=== PATIENT | female | born 1975 | race Caucasian/White ===

== ENCOUNTER 2020-05-25 08:18 | Outpatient (CLI) | payer BC, SELFPAY ==
--- NOTE | ~2020-05-25 | MM_ITS ---
EXAMINATION: MM screening [facility] w harjit HISTORY: Screening TECHNIQUE: Craniocaudal and mediolateral oblique 3-D tomosynthesis images were obtained and synthetic 2-D images were generated. CAD analysis was submitted and interpreted. COMPARISON: Comparison to multiple prior studies sequentially, with oldest reviewed study dated 10/02. BREAST PARENCHYMAL COMPOSITION: There are scattered areas of fibroglandular density. FINDINGS: There is focal subareolar asymmetry in the left breast on CC view. The right breast is stab le without evidence for malignancy. IMPRESSION: 1. Focal asymmetry of the left breast on CC view only. 2. Additional mammographic views and possible breast ultrasound are recommended. BI-RADS Category 0: Incomplete: Needs additional imaging evaluation. Reviewed, dictated and finalized at location A. E ENGINEER IMPRESSION: 1. Focal asymmetry of the left breast on CC view only. 2. Additional mammographic views and possible breast ultrasound are recommended . BI-RADS Category 0: Incomplete: Needs additional imaging evaluation.
== END 2020-05-25 08:19 | disposition home or self-care (01) ==
LOC: ANHIMG 08:22
PROVIDERS: PCP Obstetrics & Gynecology; Visit Provider Obstetrics & Gynecology
DX: Z12.31 Encounter for screening mammogram for malignant neoplasm of breast (principal); R92.8 Other abnormal and inconclusive findings on diagnostic imaging of breast
CPT/HCPCS: 77063; 77067

== ENCOUNTER 2020-06-23 11:51 | Outpatient (CLI) | payer BC, SELFPAY ==
--- NOTE | ~2020-06-23 | MM_ITS ---
EXAMINATION: MM diagnostic mammo unilat LT HISTORY: Focal asymmetry of left breast only on CC screening view of 05/25/2020 TECHNIQUE: Additional ML and coned compression CC 3-D tomosynthesis images of the left breast were pe rformed and synthetic 2-D images were generated. Rolled medial craniocaudal and rolled lateral cranio caudal views of left breast. CAD analysis was submitted and interpreted. COMPARISON: 05/25/2020, 05/08/2019, 12/26/2017, 10/02/2016 bilateral digital screening mammogram examinat ions FINDINGS: No reproducible mass is detected on these supplemental views. IMPRESSION: 1. No mammographic evidence of malignancy 2. Routine annual mammographic screening is recommended BI-RADS Category 1: Negative Reviewed, dictated and finalized at location A. CONSTRUCTION TEACHER
== END 2020-06-23 11:52 | disposition home or self-care (01) ==
LOC: ANHIMG 11:52
PROVIDERS: PCP Obstetrics & Gynecology; Visit Provider Obstetrics & Gynecology
DX: R92.8 Other abnormal and inconclusive findings on diagnostic imaging of breast (principal)
CPT/HCPCS: 77065

== ENCOUNTER 2021-09-01 14:43 | Outpatient (CLI) | payer OTHER, SELFPAY ==
--- NOTE | ~2021-09-01 | MM_ITS ---
EXAMINATION: MM screening [facility] BI w harjit HISTORY: Screening mammogram TECHNIQUE: Craniocaudal and mediolateral oblique 3-D tomosynthesis images were obtained and synthetic 2-D images were generated. CAD analysis was submitted and interpreted. COMPARISON: 06/23/2020, 05/25/2020, 05/08/2019 BREAST PARENCHYMAL COMPOSITION: The breasts are almost entirely fatty. FINDINGS: There is no evidence of suspicious mass, calcification, or architectural distortion to sugg est malignancy in either breast. There has been no suspicious interval change. IMPRESSION: 1. No mammographic evidence of malignancy. 2. Recommend routine screening mammography in one year. BI-RADS Category 1: Negative Reviewed, dictated and finalized at location A. ROAD SURVEYOR
== END 2021-09-01 14:44 | disposition home or self-care (01) ==
LOC: ANHIMG 14:46
PROVIDERS: PCP Obstetrics & Gynecology; Visit Provider Obstetrics & Gynecology
DX: Z12.31 Encounter for screening mammogram for malignant neoplasm of breast (principal)
CPT/HCPCS: 77063; 77067

== ENCOUNTER 2022-11-01 15:48 | Outpatient (CLI) | payer OTHER, SELFPAY ==
--- NOTE | ~2022-11-01 | MM_ITS ---
EXAMINATION: MM screening [facility] BI w harjit HISTORY: Screening mammogram TECHNIQUE: Craniocaudal and mediolateral oblique 3-D tomosynthesis images were obtained and synthetic 2-D images were generated. CAD analysis was submitted and interpreted. COMPARISON: No prior mammogram is available for comparison at this institution. BREAST PARENCHYMAL COMPOSITION: The breasts are almost entirely fatty. FINDINGS: There is no evidence of suspicious mass, calcification, or architectural distortion to sugg est malignancy in either breast. There has been no suspicious interval change. IMPRESSION: 1. No mammographic evidence of malignancy. 2. Recommend routine screening mammography in one year. BI-RADS Category 1: Negative Reviewed, dictated and finalized at location A.
== END 2022-11-01 15:49 | disposition home or self-care (01) ==
PROVIDERS: PCP Obstetrics & Gynecology; Visit Provider Obstetrics & Gynecology
DX: Z12.31 Encounter for screening mammogram for malignant neoplasm of breast (principal)
CPT/HCPCS: 77063; 77067

== ENCOUNTER 2022-11-11 17:44 | Emergency (ER) | payer OTHER, SELFPAY ==
[2022-11-11 18:10] VITALS: BP 148/83; PULSE 67; RESP 12; TEMP 37.3; O2SAT 100
--- NOTE | 2022-11-11 18:30 | ED.URI ---
HPI - URI/Sore Throat General Chief Complaint: Upper Respiratory Infection Stated Complaint: uri Time Seen by Provider: 11/11/22 18:30 Source: patient Mode of arrival: ambulatory Limitations: no limitations History of Present Illness HPI Narrative: 47-year-old female presents with complaint of sinus congestion, pressure to right side of face, postnasal drainage, nasal congestion for the past 4 days. Afebrile. No cough. No chest pain or shortness of breath. Denies nausea vomiting diarrhea. Is taking an [id number] cold and flu Medication to treat her symptoms. All systems reviewed and negative except as noted above. Related Data Home Medications Medication Instructions Recorded Confirmed norgestrel 0.3 mg-ethinyl 1 tablet PO DAILY 11/11/22 11/11/22 estradiol 30 mcg tablet (Elinest) Allergies Allergy/AdvReac Type Severity Reaction Status Date / Time Sulfa (Sulfonamide Allergy Severe HIVES Verified 11/11/22 17:57 Antibiotics) Review of Systems Review of Systems: CONSTITUTIONAL: Denies fever, chills, or sweats. EYES: Denies visual changes, redness, or discharge. ENT: Reports rhinorrhea, congestion, right ear pain. Denies sore throat CARDIOVASCULAR: Denies chest pain, palpitations, or edema. RESPIRATORY: Denies cough or dyspnea. GASTROINTESTINAL: Denies abdominal pain, nausea, vomiting, or diarrhea. GENITOURINARY: Denies dysuria or hematuria. SKIN: Denies rash or itching. MUSCULOSKELETAL: Denies back pain, joint pain, or myalgia. NEUROLOGIC: Denies headache, numbness, or weakness. PSYCHIATRIC: Denies anxiety or depression. All other systems reviewed are negative, except as documented in HPI. PMFSH Comments At time of signature, agree with nursing past medical, surgical, social and family history. There is no relevant family history pertinent to the presenting complaint. Exam Narrative: GENERAL: This is a well-nourished, well-developed patient, in no apparent distress. HEAD: normocephalic, atraumatic. EYES: PERRL. Sclera clear/white. Vision is grossly intact. EARS: External ears normal, auditory canals clear and without drainage, clear fluid bilateral TMs without erythema or perforation. NOSE: External nose normal with Clear nasal drainage. No erythema or swelling to bilateral nares. THROAT: Mucous membranes moist, posterior pharynx clear. NECK: Neck supple, non-tender without lymphadenopathy, masses or thyromegaly. CARDIOVASCULAR: Regular rate and rhythm without murmurs, gallops, or rubs. RESPIRATORY: Clear to auscultation. Breath sounds equal bilaterally. No wheezes, rales, or rhonchi. GASTROINTESTINAL: Abdomen soft, non-tender, nondistended. Bowel sounds are active. No hepato-splenomegaly, or palpable masses. No guarding. SKIN: warm, Dry, intact with no suspicious lesions or rash, good texture and turgor. NEURO: awake, alert, and oriented to person, place and time. There were no obvious focal neurologic abnormalities. EXTREMITIES: No joint tenderness, effusion, or edema noted. No calf tenderness. Negative Homans sign bilaterally. BACK: Nontender without deformity. No CVA tenderness. Course Course Level of Care: Express Care Visit Vital Signs Vital signs: Vital Signs Temperature 37.3 C 11/11/22 18:10 Pulse Rate 67 11/11/22 18:10 Respiratory Rate 12 11/11/22 18:10 Blood Pressure 148/83 H 11/11/22 18:10 Pulse Oximetry 100 11/11/22 18:10 Temperature 37.3 C 11/11/22 18:10 Pulse Rate 67 11/11/22 18:10 Respiratory Rate 12 11/11/22 18:10 Blood Pressure 148/83 H 11/11/22 18:10 Pulse Oximetry 100 11/11/22 18:10 Reviewed MDM - URI/Sore Throat MDM Narrative Medical decision making narrative: Patient is aware of diagnosis, understands and agrees to treatment plan. Anticipatory guidance given. Patient agrees to follow-up as directed and is aware of reasons to seek care at the emergency department. Portions of this record may have been created with
== END 2022-11-11 18:49 | disposition home or self-care (01) ==
PROVIDERS: Emergency Provider Nurse Practitioner Family
DX: J01.90 Acute sinusitis, unspecified (principal)
CPT/HCPCS: 99213; G0463

== ENCOUNTER 2024-03-09 15:22 | Outpatient (CLI) | payer OTHER, SELFPAY ==
--- NOTE | ~2024-03-09 | MM_ITS ---
EXAMINATION: MM screening [facility] BI w harjit HISTORY: Screening TECHNIQUE: Craniocaudal and mediolateral oblique 3-D tomosynthesis images were obtained and synthetic 2-D images were generated. CAD analysis was submitted and interpreted. COMPARISON: Comparison to multiple prior studies sequentially, with oldest reviewed study dated 01/2018. BREAST PARENCHYMAL COMPOSITION: There are scattered areas of fibroglandular density. FINDINGS: There is no evidence of suspicious mass, calcification, or architectural distortion to sugg est malignancy in either breast. There has been no suspicious interval change. IMPRESSION: 1. No mammographic evidence of malignancy. 2. Recommend routine screening mammography in one year. BI-RADS Category 1: Negative Reviewed, dictated and finalized at location B.
== END 2024-03-09 15:23 | disposition home or self-care (01) ==
LOC: ANHIMG 15:23
PROVIDERS: Visit Provider Obstetrics & Gynecology
DX: Z12.31 Encounter for screening mammogram for malignant neoplasm of breast (principal)
CPT/HCPCS: 77063; 77067

== ENCOUNTER 2024-12-07 06:37 | Day surgery (SDC) | payer OTHER, SELFPAY ==
[2024-08-12 13:30] VITALS: BMI 35.9
[2024-11-23 11:33] VITALS: BMI 37.8
--- NOTE | 2024-12-07 06:56 | P.PNAN_ITS ---
Anes - Initial Pre Proc Eval Procedure: Operation Date: 12/07/24 09:00 Proposed Procedures p Screening Colonoscopy - Brock Jensen MD Date/Time: 12/07/24 06:56 Surgeon: Brock Jensen MD Pre Op Diagnosis: Neoplasm Screening Patient Data Age: 49 Gender: F Height: 1.52 m Weight: 88 kg Allergies Allergy/AdvReac Type Severity Reaction Status Date / Time Sulfa (Sulfonamide Allergy Severe HIVES Verified 12/07/24 07:33 Antibiotics) Home Medications Medication Instructions Recorded Confirmed Type norgestrel 0.3 mg-ethinyl 1 tablet PO DAILY 11/11/22 12/07/24 History estradiol 30 mcg tablet (Elinest) Patient hx anesthesia problems: none Family hx anesthesia problems: none Results Review: All pre-operative results and documents have been reviewed as part of the pre- operative evaluation. [facility] Past Medical History Medical History (Updated 12/07/24 @ 06:57 by Willy Harrison DO) Psoriasis Social History Social History Smoking status: Never smoker Alcohol intake: never Substance use: never Substance use type: does not use Living arrangements: with family Spiritual care concerns: No Anes - Eval Final PreProcedure Day of Procedure 12/07/24 06:56 Patient weight: obese Heart: regular rate and rhythm Lungs: clear to auscultation Airway: Mallampati scale class II Neurological: alert and oriented Last oral intake: >/= 8 hours ASA classification: II Emergent: no Anesthetic plan: proceed Anesthesia type and monitoring: general GIVS and standard monitoring Results Review: All pre-operative results and documents have been reviewed as part of the pre- operative evaluation. Informed Consent: The patient's anesthetic plan and its attendant risks and benefits were discussed with the patient/family/POA. Questions were solicited and answers provided to the satisfaction of the patient/family/POA.
--- OUTSIDE RECORDS SUMMARY | 2024-12-07 07:23 | XMS_ITS | Clinical Summary ---
Author Organization [facility] Verified Identity Pass Address [address] [place] [address] Care Team Providers Care Chore Worker Name Role Phone Unavailable Primary Care Provider Unavailabl e Source Comments [facility] [employer],non-owned Affiliates and Associated Physician Practices is amultiple site organization consisting of ambulatory clinics and hospital sitesin [place], [place], [place] and [place]. This disclosure is being madepursuant to the Care Everywhere program and may not contain all information available regarding this patient. Last updated 18.[facility] Allergies Active Allergy Reactions Criticality Noted Date Comments Sulfa Drugs 11/02/2009 Medications * Be aware that medications may not be up to date on this document. Alwaysverify current medications with the patient. vitamin 28-0.8 MG tablet Take 1 Tab by mouth daily. 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 Gender Identity Not on file Sexual Orientation Not on file Last Filed Vital Signs Vital Sign Reading Time Taken Comments Blood Pressure 111/84 11/02/2009 5:25 PM CDT Pulse 106 11/02/2009 5:25 PM CDT Temperature 36.9 C (98.4 F) 11/02/2009 5:25 PM CDT Respiratory Rate 17 11/02/2009 5:25 PM CDT Oxygen Saturation 97% 11/02/2009 5:25 PM CDT Inhaled Oxygen Concentration - - Weight 77.1 kg (170 lb) 11/02/2009 5:25 PM CDT Height 157.5 cm (5' 2 ) 11/02/2009 5:25 PM CDT Body Mass Index 31.09 11/02/2009 5:25 PM CDT Plan of Treatment Health Maintenance Due Date Last Done Comments COLOGUARD (AGES 45-75) - COL ON CA SCREENING 1975 COLON MONITORING 1975 COLONOSCOPY - COLON CA SCREENING 1975 CT COLONOGRAPHY - COLON CA SCREENING 1975 Colorectal Cancer Screening 1975 FIT - COLON CA SCREENING 1975 FLEX SIG - COLON CA SCREENING 1975 LIPID TESTING 1975 MAMMOGRAM 1975 HIV SCREENING 1990 HEPATITIS C SCREENING 02/03/1993 DTAP/TDAP/TD VACCINES (1 - Tdap) 1994 HEPATITIS B VACCINE (1 of 3 - 19+ 3-dose series) 1994 COVID-19 VACCINE ( - 2023-2 5 season) 2024 DEPRESSION SCREENING 07/22/2024 ZOSTER VACCINE (1 of 2) 2025 INFLUENZA VACCINE (Season Ended) 2025 HIB VACCINE Aged Out No longer eligi ble based on patient's age to complete this topic HPV VACCINE Aged Out No longer eligi ble based on patient's age to complete this topic MENINGOCOCCAL (Group B) VACC INE SHARED DECISION-MAKING Aged Out No longer eligibl e based on patient's age to complete this topic MENINGOCOCCAL GROUPS A/C/Y/W VACCINE Aged Out No longer eligible b ased on patient's age to complete this topic
[2024-12-07 07:42] VITALS: BP 125/82; PULSE 70; RESP 16; TEMP 36.6; O2SAT 100; BMI 37.0
[2024-12-07] MEDS: LACTATED RINGERS 1,000 ML 150 ML IV CONT (08:10)
--- NOTE | 2024-12-07 09:14 | P.HP_ITS ---
H&P: HPI History of Present Illness Date/Time: 12/07/24 09:14 Chief Complaint: Screening colonoscopy Narrative: This is the patient's first colonoscopy. There are no GI symptoms and there is no family history of colorectal cancer. Review of Systems Review of Systems: All systems reviewed & are unremarkable except as noted in HPI and below [facility] Past Medical History Medical History (Updated 12/07/24 @ 09:15 by Brock Jensen MD) Psoriasis Social History Social History Smoking status: Never smoker Alcohol intake: never Substance use: never Substance use type: does not use Living arrangements: with family Spiritual care concerns: No Meds Home Medications and Allergies Home Medications Medication Instructions Recorded Confirmed Type norgestrel 0.3 mg-ethinyl 1 tablet PO DAILY 11/11/22 12/07/24 History estradiol 30 mcg tablet (Elinest) Allergies Allergy/AdvReac Type Severity Reaction Status Date / Time Sulfa (Sulfonamide Allergy Severe HIVES Verified 12/07/24 07:33 Antibiotics) Vital Signs Vital Signs - 24 hr 12/07/24 07:42 Temperature 98 F Pulse Rate 70 Respiratory Rate 16 Blood Pressure 125/82 Pulse Oximetry 100 Oxygen Delivery Room Air Exam Const: General: cooperative and healthy appearing Resp: Effort & Inspection: normal respiratory effort and able to speak in complete sentences Auscultation: clear to auscultation bilaterally Cardio: Rate: regular rate Rhythm: regular rhythm GI: Inspection: normal to inspection GI Palp: No No hepatosplenomegaly present Auscultation: normal bowel sounds Rectal Exam: deferred Skin: General skin exam: normal color Psych: Appearance: grossly normal Mental Status: mental status grossly normal Assessment and Plan Assessment and plan (1) Encounter for screening colonoscopy: Code(s): Z12.11 - Encounter for screening for malignant neoplasm of colon Status: Acute Assessment and Plan: The patient is deemed a good candidate for the procedure. Consent signed. Will proceed.
[2024-12-07 09:39] VITALS: BP 117/76; PULSE 80; RESP 18; O2SAT 100
[2024-12-07 09:49] VITALS: BP 111/76; PULSE 63; RESP 18; O2SAT 100
[2024-12-07 09:59] VITALS: BP 122/70; PULSE 65; RESP 18; O2SAT 100
--- NOTE | 2024-12-07 13:16 | WPDANESPN ---
Anes - Prog Note Post-Op Date/Time: 12/07/24 13:16 Cardiovascular status: normal Respiratory status: normal Airway patency: baseline Mental status: baseline Post-Op hydration status: normal Vital Signs: Last Vital Signs Temp 36.6 C 12/07/24 07:42 Pulse 65 12/07/24 09:59 Resp 18 12/07/24 09:59 BP 122/70 12/07/24 09:59 Pulse Ox 100 12/07/24 09:59 O2 Del Method Room Air 12/07/24 09:59 Pain Score (VAS): 0 I/O: Intake & Output 12/06/24 12/07/24 12/07/24 23:59 07:59 15:59 Intake Total 400 Balance 400 Post-procedural complaints: none Patient Feedback: Patient satisfied with anesthetic care. Other Findings: Patient vital signs back to baseline. Patient denies nausea and vomiting. Patient's pain under control. Patient OK for discharge.
== END 2024-12-07 10:02 | disposition home or self-care (01) ==
PROVIDERS: Referring Provider Obstetrics & Gynecology; Visit Provider Internal Medicine Gastroenterology
PROC: 0DJD8ZZ Inspection of Lower Intestinal Tract, Via Natural or Artificial Opening Endoscopic (ICD-10-PCS; CPT 45378; principal; 2024-12-07 09:00)
DX: Z12.11 Encounter for screening for malignant neoplasm of colon (principal)
CPT/HCPCS: 45378

== ENCOUNTER 2025-03-31 15:29 | Outpatient (CLI) | payer OTHER, SELFPAY ==
--- NOTE | ~2025-03-31 | MM_ITS ---
EXAMINATION: MM screening [facility] BI w harjit HISTORY: Screening TECHNIQUE: Craniocaudal and mediolateral oblique 3-D tomosynthesis images were obtained and synthetic 2-D images were generated. CAD analysis was submitted and interpreted. COMPARISON: Comparison to multiple prior studies sequentially, with oldest reviewed study dated , 05/08/2019 BREAST PARENCHYMAL COMPOSITION: There are scattered areas of fibroglandular density. FINDINGS: There is no evidence of suspicious mass, calcification, or architectural distortion to suggest malignancy in either breast. IMPRESSION: 1. No mammographic evidence of malignancy. 2. Recommend routine screening mammography in one year. BI-RADS Category 1: Negative Reviewed, dictated and finalized at location B.
--- OUTSIDE RECORDS SUMMARY | 2025-03-31 15:51 | XMS_ITS | Clinical Summary ---
Author Organization [facility] [employer] Address [address] [place] [address] Care Team Providers Care Garbage Pick Up Man Name Role Phone Unavailable Primary Care Provider Unavailabl e Source Comments [facility] [employer],non-owned Affiliates and Associated Physician Practices is amultiple site organization consisting of ambulatory clinics and hospital sitesin [place], [place], [place] and [place]. This disclosure is being madepursuant to the Care Everywhere program and may not contain all information available regarding this patient. Last updated 18.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
== END 2025-03-31 15:30 | disposition home or self-care (01) ==
LOC: ANHFOHIMG 15:31
PROVIDERS: Visit Provider Obstetrics & Gynecology
DX: Z12.31 Encounter for screening mammogram for malignant neoplasm of breast (principal)
CPT/HCPCS: 77063; 77067